=== PATIENT | male | born 1985 | race Two or more races ===

== ENCOUNTER 2018-11-08 18:31 | Emergency (ER) | payer OTHER ==
[~2018-11-08] VITALS: Ht 167.6 cm; Wt 68.0 kg
== END 2018-11-08 21:15 | disposition home or self-care (01) ==
LOC: ER 18:31
DX: B34.9 Viral infection, unspecified (principal)

== ENCOUNTER 2018-11-10 08:40 | Emergency (ER) | payer OTHER ==
[~2018-11-10] VITALS: Ht 167.6 cm; Wt 68.0 kg
== END 2018-11-10 14:54 | disposition home or self-care (01) ==
LOC: ER 08:40
DX: B34.9 Viral infection, unspecified (principal)